=== PATIENT | male | born 1965 | race African-American/Black ===

== ENCOUNTER 2020-01-17 14:50 | Emergency (ER) | payer SELFPAY ==
[~2020-01-17] VITALS: Ht 170.2 cm; Wt 99.0 kg
[2020-01-17 15:20] VITALS: BP 201/128
== END 2020-01-17 16:54 | disposition left against medical advice (07) ==
LOC: ER 14:50
DX: R46.89 Other symptoms and signs involving appearance and behavior (principal); Z53.21 Procedure and treatment not carried out due to patient leaving prior to being seen by health care provider